=== PATIENT | female | born 1995 | race Caucasian/White ===

== ENCOUNTER 2017-07-11 12:25 | Emergency (ER) | payer OTHER, SELFPAY ==
[2017-07-11 12:31] VITALS: BP 108/71; PULSE 64; RESP 16; TEMP 36.4; O2SAT 99
--- NOTE | 2017-07-11 12:51 | ED.DIZZY ---
HPI - Dizziness <MANSI Dolan - Last Filed: 07/11/17 21:15> General Chief Complaint: Dizziness Stated Complaint: ABDOMINAL PAIN, DIZZY, NAUSEA Time Seen by Provider: 07/11/17 12:40 Source: patient Mode of arrival: ambulatory History of Present Illness HPI Narrative: Patient presents with several weeks of nausea, dizziness, lower abdominal pain. She states that she was seen at the walk-in clinic on the and they tested for urinary tract infection STDs. They gave her prescription for Zofran which helped, but she is out at this time. She still complains of lower belly pain. She states she is nauseous whenever she eats. She is not sure what 1st day of her last period was. Nothing helps other than the Zofran. She declined spinning sensation. She declines chest pain, shortness of breath, fever, diarrhea, constipation. She vomited a few times last time a few days ago. She does complain of decreased oral intake. She describes her lower belly pain as occasional, cramping, like she is about to get her period. She states that the lightheadedness and dizziness gets worse when she is really nauseous. Denies urinary symptoms. Denies flank pain. Denies fever. Denies vaginal symptoms. Related Data Home Medications Medication Instructions Recorded Confirmed fluoxetine 40 mg capsule 40 mg PO QPM 07/02/17 07/11/17 norgestimate 0.18 mg/0.215 mg/0.25 1 tab PO DAILY 07/02/17 07/11/17 mg-ethinyl estradiol 25 mcg tablet Previous Rx's Medication Instructions Recorded ondansetron 4 mg disintegrating 4 mg PO Q6H PRN #14 tab 07/02/17 tablet ondansetron 4 mg PO Q6H PRN #20 tab 07/11/17 Allergies Allergy/AdvReac Type Severity Reaction Status Date / Time No Known Drug Allergies Allergy Verified 07/11/17 12:35 Review of Systems <MANSI Dolan - Last Filed: 07/11/17 21:15> Review of Systems GENERAL: Denies chills, fatigue, malaise, fever, sweats. HEENT: Denies sinus pain, ear pain, sore throat, difficulty swallowing, dizziness. RESPIRATORY: Denies dyspnea, cough, wheezing, hemoptysis, sputum. CARDIOVASCULAR: Denies chest pain, palpitations, orthopnea, edema, GASTROINTESTINAL: See HPI : See HPI MUSCULOSKELETAL: denies weakness, joint pain, or bony pain SKIN: Denies rash, skin lesions, or other NEUROLOGIC: See HPI PSYCHIATRIC: No concerning psychosocial issues. 12 point review of systems is negative except for those stated above Exam <Jessica CarrANY ma-BC - Last Filed: 07/11/17 21:15> Narrative Exam Narrative: GENERAL: This is a well-nourished, well-developed patient, on stretcher with at the bedside HEAD: Atraumatic. Normocephalic. No temporal or scalp tenderness. EYES: Pupils equal round and reactive. Extraocular motions intact. No scleral icterus. No injection or drainage. ENT: Nose without bleeding, purulent drainage or septal hematoma. Throat without erythema, tonsillar hypertrophy or exudate. Uvula midline. Airway patent. Noted dry mucous membranes and tongue. NECK: Trachea midline. No JVD or lymphadenopathy. Supple, nontender, no meningeal signs. CARDIOVASCULAR: Regular rate and rhythm without murmurs, gallops, or rubs. RESPIRATORY: Clear to auscultation. Breath sounds equal bilaterally. No wheezes, rales, or rhonchi. GASTROINTESTINAL: Abdomen soft,, nondistended. No hepato-splenomegaly, or palpable masses. No guarding. Generalized suprapubic pain to palpation. No CVA tenderness bilaterally. EXTREMITIES: No clubbing, cyanosis, or edema. No joint tenderness, effusion, or edema noted. BACK: Nontender without deformity or crepitance. No flank tenderness. NEURO: AOx3. SKIN: No rash or erythema. Initial Vital Signs Initial Vital Signs: Vital Signs Temperature 97.5 F L 07/11/17 12:31 Pulse Rate 64 07/11/17 12:31 Respiratory Rate 16 07/11/17 12:31 Blood Pressure 108/71 07/11/17 12:31 Pulse Oximetry 99 07/11/17 12:31 <Danuta Adams MD - Last Filed: 07/12/17 07:35> Initial Vital Signs Initial Vital Signs: Vital Signs Temperature 97.5 F L 07/11/17 12:31 Pulse Rate 64 07/11/17 12:31 Respiratory Rate 16 07/11/17 12:31 Blood Pressure 108/71 07/11/17 12:31 Pulse Oximetry 99 07/11/17 12:31 Course <Jessica Gu, MMA FIGHTER-BC - Last Filed: 07/11/17 21:15> Hospital Course: 12:50- patient seen. given warm blankets for comfort. orders placed. 13:40- ekg done 13:45- and spoke with patient obtain consent to check urine for gonorrhea and chlamydia. Patient states she does smoke weed 3 times a day or so. Conversation occurred with no boyfriend in the room to protect patient confidentiality. She states that she is not at risk for any sexually transmitted infections at this time but agrees to be tested. Orders Ordered: Discontinued Medications Sodium Chloride (Normal Saline 0.9%) 1,000 mls @ 1,000 mls/hr IV BOLUS ONE Stop: 07/11/17 13:51 Last Infusion: 07/11/17 14:25 Dose: 0 mls/hr Admin: 07/11/17 13:03 Dose: 1,000 mls/hr Ondansetron HCl (Zofran) 4 mg IV NOW ONE Stop: 07/11/17 12:53 Last Admin: 07/11/17 13:03 Dose: 4 mg Reevaluation(s) Reevaluation #1: Patient resting in bed. States nausea is improved after Zofran and fluids. Discussed that lab work is still pending. Time: 14:10 Reevaluation #2: Lab was contacted regarding wait for results. Results will be up in about 25 min. Discussed with patient cause for delay. Discussed with patient that smoking marijuana 3 times a day could be leading to her nausea. Discussed marijuana induced cyclic vomiting syndrome. Patient is resistant to the idea as she uses marijuana to help her nausea. Discussed with patient the cyclic nature of marijuana induced cyclic vomiting or nausea. Time: 13:30 Reevaluation #3: Patient's lab work has been resulted. Discussed results with patient. Gonorrhea and chlamydia have come back negative. Patient has been given a prescription for Zofran. She has no questions or concerns upon discharge and states she is ready to go home. Time: 14:10 Vital Signs - 8 hr 07/11/17 13:52 07/11/17 14:36 07/11/17 15:21 Pulse Rate 68 76 Pulse Rate [Orthostatic Lying] 59 L Pulse Rate [Orthostatic Sitting] 70 Pulse Rate [Orthostatic Standing] 68 Respiratory Rate 17 17 Blood Pressure Blood Pressure [Orthostatic Lying] 117/67 Blood Pressure [Orthostatic Sitting] 112/63 Blood Pressure [Orthostatic Standing] 116/65 Blood Pressure [Right Arm] 119/86 H 110/67 Pulse Oximetry 100 100 07/11/17 15:26 07/11/17 16:10 Pulse Rate 64 67 Pulse Rate [Orthostatic Lying] Pulse Rate [Orthostatic Sitting] Pulse Rate [Orthostatic Standing] Respiratory Rate 23 21 Blood Pressure 107/70 Blood Pressure [Orthostatic Lying] Blood Pressure [Orthostatic Sitting] Blood Pressure [Orthostatic Standing] Blood Pressure [Right Arm] 116/65 Pulse Oximetry 99 100 <Danuta Adams MD - Last Filed: 07/12/17 07:35> Orders Ordered: Discontinued Medications Sodium Chloride (Normal Saline 0.9%) 1,000 mls @ 1,000 mls/hr IV BOLUS ONE Stop: 07/11/17 13:51 Last Infusion: 07/11/17 14:25 Dose: 0 mls/hr Admin: 07/11/17 13:03 Dose: 1,000 mls/hr Ondansetron HCl (Zofran) 4 mg IV NOW ONE Stop: 07/11/17 12:53 Last Admin: 07/11/17 13:03 Dose: 4 mg Vital Signs - 8 hr 07/11/17 13:52 07/11/17 14:36 07/11/17 15:21 Pulse Rate 68 76 Pulse Rate [Orthostatic Lying] 59 L Pulse Rate [Orthostatic Sitting] 70 Pulse Rate [Orthostatic Standing] 68 Respiratory Rate 17 17 Blood Pressure Blood Pressure [Orthostatic Lying] 117/67 Blood Pressure [Orthostatic Sitting] 112/63 Blood Pressure [Orthostatic Standing] 116/65 Blood Pressure [Right Arm] 119/86 H 110/67 Pulse Oximetry 100 100 07/11/17 15:26 07/11/17 16:10 Pulse Rate 64 67 Pulse Rate [Orthostatic Lying] Pulse Rate [Orthostatic Sitting] Pulse Rate [Orthostatic Standing] Respiratory Rate 23 21 Blood Pressure 107/70 Blood Pressure [Orthostatic Lying] Blood Pressure [Orthostatic Sitting] Blood Pressure [Orthostatic Standing] Blood Pressure [Right Arm] 116/65 Pulse Oximetry 99 100 MDM - Dizziness <MANSI Dolan - Last Filed: 07/11/17 21:15> Lab Data Attestation: I reviewed the patient's lab results. Result diagrams: 07/11/17 13:05 07/11/17 13:05 Lab Results 07/11/17 07/11/17 07/11/17 Range/Units 13:05 13:05 13:05 WBC 6.2 (4.5-11.0) X10^3/uL RBC 4.49 (4.0-5.2) X10^6/uL Hgb 13.0 (12.0-16.0) g/dL Hct 38.3 (36-46) % MCV 85.2 (80-100) fL MCH 28.9 (26-34) PG MCHC 33.9 (30-36) % RDW 13.2 (11.6-14.8) % Plt Count 254 (150-400) X10^3/uL Neut % (Auto) 59.6 (50-75) % Lymph % (Auto) 29.5 (25-40) % [place] % (Auto) 8.7 (3-14) % Eos % (Auto) 2.0 (2-4) % Baso % (Auto) 0.2 (0-2) % Neut # (Auto) 3700 (6372-4947) /uL Sodium 142 (137-145) mmol/L Potassium 4.2 (3.4-5.1) mmol/L Chloride 104.0 (98-107) mmol/L Carbon Dioxide 21.0 L (22-32) mmol/L BUN 13.0 (7-17) mg/dL Creatinine 0.70 (0.52-1.04) mg/dL Estimated GFR > 60.0 (>60) mL/min BUN/Creatinine Ratio 18.6 (6-22) Glucose 87 (70-100) mg/dL Calcium 9.5 (8.4-10.2) mg/dL Total Bilirubin 0.6 (0.2-1.3) mg/dL AST 23 (14-36) IU/L ALT 19 (9-52) IU/L Alkaline Phosphatase 51 (38-126) U/L Total Protein 8.4 H (6.3-8.2) g/dL Albumin 4.7 (3.5-5.0) g/dL Globulin 3.7 (1.7-4.1) g/dL Albumin/Globulin Ratio 1.3 (1.0-2.8) Serum , Qual Negative (Negative) Ur Chlamydia DNA (PCR) N gonorrhoeae DNA (PCR) 07/11/17 Range/Units 13:18 WBC (4.5-11.0) X10^3/uL RBC (4.0-5.2) X10^6/uL Hgb (12.0-16.0) g/dL Hct (36-46) % MCV (80-100) fL MCH (26-34) PG MCHC (30-36) % RDW (11.6-14.8) % Plt Count (150-400) X10^3/uL Neut % (Auto) (50-75) % Lymph % (Auto) (25-40) % [place] % (Auto) (3-14) % Eos % (Auto) (2-4) % Baso % (Auto) (0-2) % Neut # (Auto) (8437-7934) /uL Sodium (137-145) mmol/L Potassium (3.4-5.1) mmol/L Chloride (98-107) mmol/L Carbon Dioxide (22-32) mmol/L BUN (7-17) mg/dL Creatinine (0.52-1.04) mg/dL Estimated GFR (>60) mL/min BUN/Creatinine Ratio (6-22) Glucose (70-100) mg/dL Calcium (8.4-10.2) mg/dL Total Bilirubin (0.2-1.3) mg/dL AST (14-36) IU/L ALT (9-52) IU/L Alkaline Phosphatase (38-126) U/L Total Protein (6.3-8.2) g/dL Albumin (3.5-5.0) g/dL Globulin (1.7-4.1) g/dL Albumin/Globulin Ratio (1.0-2.8) Serum , Qual (Negative) Ur Chlamydia DNA (PCR) Not detected N gonorrhoeae DNA (PCR) Not detected MDM Narrative Medical decision making narrative: Patient presented with several weeks of transient nausea and dizziness. She is afebrile and exam does not reveal an acute abdomen. A CBC, CMP, urine labs were ordered and came back within normal limits. Was negative for via urine and serum. She was given a L of fluid as well as Zofran with good relief of nausea. I do highly suspect that smoking marijuana 3 times a day partially contributing, if not the cause of her dizziness and nausea. <Danuta Adams MD - Last Filed: 07/12/17 07:35> Lab Data Lab Results 07/11/17 07/11/17 07/11/17 Range/Units 13:05 13:05 13:05 WBC 6.2 (4.5-11.0) X10^3/uL RBC 4.49 (4.0-5.2) X10^6/uL Hgb 13.0 (12.0-16.0) g/dL Hct 38.3 (36-46) % MCV 85.2 (80-100) fL MCH 28.9 (26-34) PG MCHC 33.9 (30-36) % RDW 13.2 (11.6-14.8) % Plt Count 254 (150-400) X10^3/uL Neut % (Auto) 59.6 (50-75) % Lymph % (Auto) 29.5 (25-40) % [place] % (Auto) 8.7 (3-14) % Eos % (Auto) 2.0 (2-4) % Baso % (Auto) 0.2 (0-2) % Neut # (Auto) 3700 (4179-2502) /uL Sodium 142 (137-145) mmol/L Potassium 4.2 (3.4-5.1) mmol/L Chloride 104.0 (98-107) mmol/L Carbon Dioxide 21.0 L (22-32) mmol/L BUN 13.0 (7-17) mg/dL Creatinine 0.70 (0.52-1.04) mg/dL Estimated GFR > 60.0 (>60) mL/min BUN/Creatinine Ratio 18.6 (6-22) Glucose 87 (70-100) mg/dL Calcium 9.5 (8.4-10.2) mg/dL Total Bilirubin 0.6 (0.2-1.3) mg/dL AST 23 (14-36) IU/L ALT 19 (9-52) IU/L Alkaline Phosphatase 51 (38-126) U/L Total Protein 8.4 H (6.3-8.2) g/dL Albumin 4.7 (3.5-5.0) g/dL Globulin 3.7 (1.7-4.1) g/dL Albumin/Globulin Ratio 1.3 (1.0-2.8) Serum , Qual Negative (Negative) Ur Chlamydia DNA (PCR) N gonorrhoeae DNA (PCR) 07/11/17 Range/Units 13:18 WBC (4.5-11.0) X10^3/uL RBC (4.0-5.2) X10^6/uL Hgb (12.0-16.0) g/dL Hct (36-46) % MCV (80-100) fL MCH (26-34) PG MCHC (30-36) % RDW (11.6-14.8) % Plt Count (150-400) X10^3/uL Neut % (Auto) (50-75) % Lymph % (Auto) (25-40) % [place] % (Auto) (3-14) % Eos % (Auto) (2-4) % Baso % (Auto) (0-2) % Neut # (Auto) (0046-8572) /uL Sodium (137-145) mmol/L Potassium (3.4-5.1) mmol/L Chloride (98-107) mmol/L Carbon Dioxide (22-32) mmol/L BUN (7-17) mg/dL Creatinine (0.52-1.04) mg/dL Estimated GFR (>60) mL/min BUN/Creatinine Ratio (6-22) Glucose (70-100) mg/dL Calcium (8.4-10.2) mg/dL Total Bilirubin (0.2-1.3) mg/dL AST (14-36) IU/L ALT (9-52) IU/L Alkaline Phosphatase (38-126) U/L Total Protein (6.3-8.2) g/dL Albumin (3.5-5.0) g/dL Globulin (1.7-4.1) g/dL Albumin/Globulin Ratio (1.0-2.8) Serum , Qual (Negative) Ur Chlamydia DNA (PCR) Not detected N gonorrhoeae DNA (PCR) Not detected Discharge Plan Departure Patient Disposition: Home, Self-Care Clinical Impression: Nausea Discharge Date/Time: 07/11/17 16:17 Interventions: ED Discharge Assessment Last Done: 07/11/17 16:10 Instructions: DI for Nausea -- Adult, Nausea and Vomiting-Adult Activity Restrictions/Additional Instructions: All of your lab work came back negative. I suggest decreasing you frequency of smoking marijuana to see if that helps. I suggest you cut back as much as you can tolerate. I have given you a prescription for Zofran for nausea. In the meantime, I suggest that you eat simple diet with decreased acidity and decreased spicy foods. Avoid things like citrus, tomatoes, or hot peppers. Definitely follow up with primary care provider come back to the emergency department if he develops fevers, sudden right-sided lower belly pain. Prescriptions: New ondansetron 4 mg tablet,disintegrating 4 mg PO Q6H PRN (Reason: nausea and vomiting) Qty: 20 RF: 0 No Action fluoxetine [Prozac] 40 mg capsule 40 mg PO QPM RF: 0 norgestimate-ethinyl estradiol [Ortho Tri-Cyclen LO (28)] 0.18/0.215/0.25 mg-25 mcg tablet 1 tab PO DAILY RF: 0 ondansetron [Zofran ODT] 4 mg tablet,disintegrating 4 mg PO Q6H PRN (Reason: nausea and vomiting) Qty: 14 RF: 0 <Danuta Adams MD - Last Filed: 07/12/17 07:35> Sign Out Provider Sign Out Attestation: I was the attending of record and available in the ED. I attest to the documentation recorded and agree with assessment and plan.
[2017-07-11] MEDS: SODIUM CHLORIDE 0.9% 1,000 ML 1000 ML IV (13:03)
[2017-07-11] MEDS: ONDANSETRON 4 MG/2 ML INJ IV (13:03)
--- NOTE | 2017-07-11 13:20 | ED_ITS ---
HPI - Dizziness <MANSI Dolan - Last Filed: 07/11/17 21:15> General Chief Complaint: Dizziness Stated Complaint: ABDOMINAL PAIN, DIZZY, NAUSEA Time Seen by Provider: 07/11/17 12:40 Source: patient Mode of arrival: ambulatory History of Present Illness HPI Narrative: Patient presents with several weeks of nausea, dizziness, lower abdominal pain. She states that she was seen at the walk-in clinic on the and they tested for urinary tract infection STDs. They gave her prescription for Zofran which helped, but she is out at this time. She still complains of lower belly pain. She states she is nauseous whenever she eats. She is not sure what 1st day of her last period was. Nothing helps other than the Zofran. She declined spinning sensation. She declines chest pain, shortness of breath , fever, diarrhea, constipation. She vomited a few times last time a few days ago. She does complain of decreased oral intake. She describes her lower belly pain as occasional, cramping, like she is about to get her period. She states that the lightheadedness and dizziness gets worse when she is really nauseous. Denies urinary symptoms. Denies flank pain. Denies fever. Denies vaginal symptoms. Related Data Home Medications Medication Instructions Recorded Confirmed fluoxetine 40 mg capsule 40 mg PO QPM 07/02/17 07/11/17 norgestimate 0.18 mg/0.215 mg/0.25 1 tab PO DAILY 07/02/17 07/11/17 mg-ethinyl estradiol 25 mcg tablet Previous Rx's Medication Instructions Recorded ondansetron 4 mg disintegrating 4 mg PO Q6H PRN #14 tab 07/02/17 tablet ondansetron 4 mg PO Q6H PRN #20 tab 07/11/17 Allergies Allergy/AdvReac Type Severity Reaction Status Date / Time No Known Drug Allergies Allergy Verified 07/11/17 12:35 Review of Systems <MANSI Dolan - Last Filed: 07/11/17 21:15> Review of Systems GENERAL: Denies chills, fatigue, malaise, fever, sweats. HEENT: Denies sinus pain, ear pain, sore throat, difficulty swallowing, dizziness. RESPIRATORY: Denies dyspnea, cough, wheezing, hemoptysis, sputum. CARDIOVASCULAR: Denies chest pain, palpitations, orthopnea, edema, GASTROINTESTINAL: See HPI : See HPI MUSCULOSKELETAL: denies weakness, joint pain, or bony pain SKIN: Denies rash, skin lesions, or other NEUROLOGIC: See HPI PSYCHIATRIC: No concerning psychosocial issues. 12 point review of systems is negative except for those stated above Exam <Jessica CarrANY ma-BC - Last Filed: 07/11/17 21:15> Narrative Exam Narrative: GENERAL: This is a well-nourished, well-developed patient, on stretcher with at the bedside HEAD: Atraumatic. Normocephalic. No temporal or scalp tenderness. EYES: Pupils equal round and reactive. Extraocular motions intact. No scleral icterus. No injection or drainage. ENT: Nose without bleeding, purulent drainage or septal hematoma. Throat without erythema, tonsillar hypertrophy or exudate. Uvula midline. Airway patent. Noted dry mucous membranes and tongue. NECK: Trachea midline. No JVD or lymphadenopathy. Supple, nontender, no meningeal signs. CARDIOVASCULAR: Regular rate and rhythm without murmurs, gallops, or rubs. RESPIRATORY: Clear to auscultation. Breath sounds equal bilaterally. No wheezes , rales, or rhonchi. GASTROINTESTINAL: Abdomen soft,, nondistended. No hepato-splenomegaly, or palpable masses. No guarding. Generalized suprapubic pain to palpation. No CVA tenderness bilaterally. EXTREMITIES: No clubbing, cyanosis, or edema. No joint tenderness, effusion, or edema noted. BACK: Nontender without deformity or crepitance. No flank tenderness. NEURO: AOx3. SKIN: No rash or erythema. Initial Vital Signs Initial Vital Signs: Vital Signs Temperature 97.5 F L 07/11/17 12:31 Pulse Rate 64 07/11/17 12:31 Respiratory Rate 16 07/11/17 12:31 Blood Pressure 108/71 07/11/17 12:31 Pulse Oximetry 99 07/11/17 12:31 <Danuta Adams MD - Last Filed: 07/12/17 07:35> Initial Vital Signs Initial Vital Signs: Vital Signs Temperature 97.5 F L 07/11/17 12:31 Pulse Rate 64 07/11/17 12:31 Respiratory Rate 16 07/11/17 12:31 Blood Pressure 108/71 07/11/17 12:31 Pulse Oximetry 99 07/11/17 12:31 Course <Jessica Gu, STR[employer] FOLDING MACHINE OPERATOR-BC - Last Filed: 07/11/17 21:15> Hospital Course: 12:50- patient seen. given warm blankets for comfort. orders placed. 13:40- ekg done 13:45- and spoke with patient obtain consent to check urine for gonorrhea and chlamydia. Patient states she does smoke weed 3 times a day or so. Conversation occurred with no boyfriend in the room to protect patient confidentiality. She states that she is not at risk for any sexually transmitted infections at this time but agrees to be tested. Orders Ordered: Discontinued Medications Sodium Chloride (Normal Saline 0.9%) 1,000 mls @ 1,000 mls/hr IV BOLUS ONE Stop: 07/11/17 13:51 Last Infusion: 07/11/17 14:25 Dose: 0 mls/hr Admin: 07/11/17 13:03 Dose: 1,000 mls/hr Ondansetron HCl (Zofran) 4 mg IV NOW ONE Stop: 07/11/17 12:53 Last Admin: 07/11/17 13:03 Dose: 4 mg Reevaluation(s) Reevaluation #1: Patient resting in bed. States nausea is improved after Zofran and fluids. Discussed that lab work is still pending. Time: 14:10 Reevaluation #2: Lab was contacted regarding wait for results. Results will be up in about 25 min. Discussed with patient cause for delay. Discussed with patient that smoking marijuana 3 times a day could be leading to her nausea. Discussed marijuana induced cyclic vomiting syndrome. Patient is resistant to the idea as she uses marijuana to help her nausea. Discussed with patient the cyclic nature of marijuana induced cyclic vomiting or nausea. Time: 13:30 Reevaluation #3: Patient's lab work has been resulted. Discussed results with patient. Gonorrhea and chlamydia have come back negative. Patient has been given a prescription for Zofran. She has no questions or concerns upon discharge and states she is ready to go home. Time: 14:10 Vital Signs - 8 hr 07/11/17 13:52 07/11/17 14:36 07/11/17 15:21 Pulse Rate 68 76 Pulse Rate [Orthostatic Lying] 59 L Pulse Rate [Orthostatic Sitting] 70 Pulse Rate [Orthostatic Standing] 68 Respiratory Rate 17 17 Blood Pressure Blood Pressure [Orthostatic Lying] 117/67 Blood Pressure [Orthostatic Sitting] 112/63 Blood Pressure [Orthostatic Standing] 116/65 Blood Pressure [Right Arm] 119/86 H 110/67 Pulse Oximetry 100 100 07/11/17 15:26 07/11/17 16:10 Pulse Rate 64 67 Pulse Rate [Orthostatic Lying] Pulse Rate [Orthostatic Sitting] Pulse Rate [Orthostatic Standing] Respiratory Rate 23 21 Blood Pressure 107/70 Blood Pressure [Orthostatic Lying] Blood Pressure [Orthostatic Sitting] Blood Pressure [Orthostatic Standing] Blood Pressure [Right Arm] 116/65 Pulse Oximetry 99 100 <Danuta Adams MD - Last Filed: 07/12/17 07:35> Orders Ordered: Discontinued Medications Sodium Chloride (Normal Saline 0.9%) 1,000 mls @ 1,000 mls/hr IV BOLUS ONE Stop: 07/11/17 13:51 Last Infusion: 07/11/17 14:25 Dose: 0 mls/hr Admin: 07/11/17 13:03 Dose: 1,000 mls/hr Ondansetron HCl (Zofran) 4 mg IV NOW ONE Stop: 07/11/17 12:53 Last Admin: 07/11/17 13:03 Dose: 4 mg Vital Signs - 8 hr 07/11/17 13:52 07/11/17 14:36 07/11/17 15:21 Pulse Rate 68 76 Pulse Rate [Orthostatic Lying] 59 L Pulse Rate [Orthostatic Sitting] 70 Pulse Rate [Orthostatic Standing] 68 Respiratory Rate 17 17 Blood Pressure Blood Pressure [Orthostatic Lying] 117/67 Blood Pressure [Orthostatic Sitting] 112/63 Blood Pressure [Orthostatic Standing] 116/65 Blood Pressure [Right Arm] 119/86 H 110/67 Pulse Oximetry 100 100 07/11/17 15:26 07/11/17 16:10 Pulse Rate 64 67 Pulse Rate [Orthostatic Lying] Pulse Rate [Orthostatic Sitting] Pulse Rate [Orthostatic Standing] Respiratory Rate 23 21 Blood Pressure 107/70 Blood Pressure [Orthostatic Lying] Blood Pressure [Orthostatic Sitting] Blood Pressure [Orthostatic Standing] Blood Pressure [Right Arm] 116/65 Pulse Oximetry 99 100 MDM - Dizziness <MANSI Dolan - Last Filed: 07/11/17 21:15> Lab Data Attestation: I reviewed the patient's lab results. Result diagrams: 07/11/17 13:05 07/11/17 13:05 Lab Results 07/11/17 07/11/17 07/11/17 Range/Units 13:05 13:05 13:05 WBC 6.2 (4.5-11.0) X10^3/uL RBC 4.49 (4.0-5.2) X10^6/uL Hgb 13.0 (12.0-16.0) g/dL Hct 38.3 (36-46) % MCV 85.2 (80-100) fL MCH 28.9 (26-34) PG MCHC 33.9 (30-36) % RDW 13.2 (11.6-14.8) % Plt Count 254 (150-400) X10^3/uL Neut % (Auto) 59.6 (50-75) % Lymph % (Auto) 29.5 (25-40) % [place] % (Auto) 8.7 (3-14) % Eos % (Auto) 2.0 (2-4) % Baso % (Auto) 0.2 (0-2) % Neut # (Auto) 3700 (1388-8491) /uL Sodium 142 (137-145) mmol/L Potassium 4.2 (3.4-5.1) mmol/L Chloride 104.0 (98-107) mmol/L Carbon Dioxide 21.0 L (22-32) mmol/L BUN 13.0 (7-17) mg/dL Creatinine 0.70 (0.52-1.04) mg/dL Estimated GFR > 60.0 (>60) mL/min BUN/Creatinine Ratio 18.6 (6-22) Glucose 87 (70-100) mg/dL Calcium 9.5 (8.4-10.2) mg/dL Total Bilirubin 0.6 (0.2-1.3) mg/dL AST 23 (14-36) IU/L ALT 19 (9-52) IU/L Alkaline Phosphatase 51 (38-126) U/L Total Protein 8.4 H (6.3-8.2) g/dL Albumin 4.7 (3.5-5.0) g/dL Globulin 3.7 (1.7-4.1) g/dL Albumin/Globulin Ratio 1.3 (1.0-2.8) Serum , Qual Negative (Negative) Ur Chlamydia DNA (PCR) N gonorrhoeae DNA (PCR) 07/11/17 Range/Units 13:18 WBC (4.5-11.0) X10^3/uL RBC (4.0-5.2) X10^6/uL Hgb (12.0-16.0) g/dL Hct (36-46) % MCV (80-100) fL MCH (26-34) PG MCHC (30-36) % RDW (11.6-14.8) % Plt Count (150-400) X10^3/uL Neut % (Auto) (50-75) % Lymph % (Auto) (25-40) % [place] % (Auto) (3-14) % Eos % (Auto) (2-4) % Baso % (Auto) (0-2) % Neut # (Auto) (9755-7127) /uL Sodium (137-145) mmol/L Potassium (3.4-5.1) mmol/L Chloride (98-107) mmol/L Carbon Dioxide (22-32) mmol/L BUN (7-17) mg/dL Creatinine (0.52-1.04) mg/dL Estimated GFR (>60) mL/min BUN/Creatinine Ratio (6-22) Glucose (70-100) mg/dL Calcium (8.4-10.2) mg/dL Total Bilirubin (0.2-1.3) mg/dL AST (14-36) IU/L ALT (9-52) IU/L Alkaline Phosphatase (38-126) U/L Total Protein (6.3-8.2) g/dL Albumin (3.5-5.0) g/dL Globulin (1.7-4.1) g/dL Albumin/Globulin Ratio (1.0-2.8) Serum , Qual (Negative) Ur Chlamydia DNA (PCR) Not detected N gonorrhoeae DNA (PCR) Not detected MDM Narrative Medical decision making narrative: Patient presented with several weeks of transient nausea and dizziness. She is afebrile and exam does not reveal an acute abdomen. A CBC, CMP, urine labs were ordered and came back within normal limits. Was negative for via urine and serum. She was given a L of fluid as well as Zofran with good relief of nausea. I do highly suspect that smoking marijuana 3 times a day partially contributing , if not the cause of her dizziness and nausea. <Danuta Adams MD - Last Filed: 07/12/17 07:35> Lab Data Lab Results 07/11/17 07/11/17 07/11/17 Range/Units 13:05 13:05 13:05 WBC 6.2 (4.5-11.0) X10^3/uL RBC 4.49 (4.0-5.2) X10^6/uL Hgb 13.0 (12.0-16.0) g/dL Hct 38.3 (36-46) % MCV 85.2 (80-100) fL MCH 28.9 (26-34) PG MCHC 33.9 (30-36) % RDW 13.2 (11.6-14.8) % Plt Count 254 (150-400) X10^3/uL Neut % (Auto) 59.6 (50-75) % Lymph % (Auto) 29.5 (25-40) % [place] % (Auto) 8.7 (3-14) % Eos % (Auto) 2.0 (2-4) % Baso % (Auto) 0.2 (0-2) % Neut # (Auto) 3700 (4480-1760) /uL Sodium 142 (137-145) mmol/L Potassium 4.2 (3.4-5.1) mmol/L Chloride 104.0 (98-107) mmol/L Carbon Dioxide 21.0 L (22-32) mmol/L BUN 13.0 (7-17) mg/dL Creatinine 0.70 (0.52-1.04) mg/dL Estimated GFR > 60.0 (>60) mL/min BUN/Creatinine Ratio 18.6 (6-22) Glucose 87 (70-100) mg/dL Calcium 9.5 (8.4-10.2) mg/dL Total Bilirubin 0.6 (0.2-1.3) mg/dL AST 23 (14-36) IU/L ALT 19 (9-52) IU/L Alkaline Phosphatase 51 (38-126) U/L Total Protein 8.4 H (6.3-8.2) g/dL Albumin 4.7 (3.5-5.0) g/dL Globulin 3.7 (1.7-4.1) g/dL Albumin/Globulin Ratio 1.3 (1.0-2.8) Serum , Qual Negative (Negative) Ur Chlamydia DNA (PCR) N gonorrhoeae DNA (PCR) 07/11/17 Range/Units 13:18 WBC (4.5-11.0) X10^3/uL RBC (4.0-5.2) X10^6/uL Hgb (12.0-16.0) g/dL Hct (36-46) % MCV (80-100) fL MCH (26-34) PG MCHC (30-36) % RDW (11.6-14.8) % Plt Count (150-400) X10^3/uL Neut % (Auto) (50-75) % Lymph % (Auto) (25-40) % [place] % (Auto) (3-14) % Eos % (Auto) (2-4) % Baso % (Auto) (0-2) % Neut # (Auto) (7722-0817) /uL Sodium (137-145) mmol/L Potassium (3.4-5.1) mmol/L Chloride (98-107) mmol/L Carbon Dioxide (22-32) mmol/L BUN (7-17) mg/dL Creatinine (0.52-1.04) mg/dL Estimated GFR (>60) mL/min BUN/Creatinine Ratio (6-22) Glucose (70-100) mg/dL Calcium (8.4-10.2) mg/dL Total Bilirubin (0.2-1.3) mg/dL AST (14-36) IU/L ALT (9-52) IU/L Alkaline Phosphatase (38-126) U/L Total Protein (6.3-8.2) g/dL Albumin (3.5-5.0) g/dL Globulin (1.7-4.1) g/dL Albumin/Globulin Ratio (1.0-2.8) Serum , Qual (Negative) Ur Chlamydia DNA (PCR) Not detected N gonorrhoeae DNA (PCR) Not detected Discharge Plan Departure Patient Disposition: Home, Self-Care Clinical Impression: Nausea Discharge Date/Time: 07/11/17 16:17 Interventions: ED Discharge Assessment Last Done: 07/11/17 16:10 Instructions: DI for Nausea -- Adult, Nausea and Vomiting-Adult Activity Restrictions/Additional Instructions: All of your lab work came back negative. I suggest decreasing you frequency of smoking marijuana to see if that helps. I suggest you cut back as much as you can tolerate. I have given you a prescription for Zofran for nausea. In the meantime, I suggest that you eat simple diet with decreased acidity and decreased spicy foods. Avoid things like citrus, tomatoes, or hot peppers. Definitely follow up with primary care provider come back to the emergency department if he develops fevers, sudden right-sided lower belly pain. Prescriptions: New ondansetron 4 mg tablet,disintegrating 4 mg PO Q6H PRN (Reason: nausea and vomiting) Qty: 20 RF: 0 No Action fluoxetine [Prozac] 40 mg capsule 40 mg PO QPM RF: 0 norgestimate-ethinyl estradiol [Ortho Tri-Cyclen LO (28)] 0.18/0.215/0.25 mg- 25 mcg tablet 1 tab PO DAILY RF: 0 ondansetron [Zofran ODT] 4 mg tablet,disintegrating 4 mg PO Q6H PRN (Reason: nausea and vomiting) Qty: 14 RF: 0 <Danuta Adams MD - Last Filed: 07/12/17 07:35> Sign Out Provider Sign Out Attestation: I was the attending of record and available in the ED. I attest to the documentation recorded and agree with assessment and plan.
[2017-07-11 13:34] LABS: Alanine Aminotransferase 19 IU/L (9-52); Albumin 4.7 g/dL (3.5-5.0); Albumin Globulin Ratio 1.3 (1.0-2.8); Alkaline Phosphatase 51 U/L (38-126); Aspartate Aminotransferase 23 IU/L (14-36); BUN Creatinine Ratio 18.6 (6-22); Bilirubin Total 0.6 mg/dL (0.2-1.3); Calcium 9.5 mg/dL (8.4-10.2); Estimated Glomerular Filt Rate > 60.0 mL/min (>60); Globulin 3.7 g/dL (1.7-4.1); Glucose 87 mg/dL (70-100); HEMOLYSIS 36 (0-50); Potassium 4.2 mmol/L (3.4-5.1); Sodium 142 mmol/L (137-145); Total Protein 8.4 g/dL (6.3-8.2)
--- NOTE | 2017-07-11 13:34 | PC.NURSE ---
Ongoing nausea, vomiting, and some diarrhea for the past 2 weeks. Denies fever or chills. Abdominal pain is in the lower abdominal area below the umbilicus. Her dizziness will occur suddenly while she is at work and then subside. She is currently on the pill, but does not know date of last menstrual period.
[2017-07-11 13:37] LABS: Pregnancy Test Serum,Qual Negative (Negative)
[2017-07-11 13:41] LABS: Add Manual Diff / Slide Review NO; Basophils Percent Auto 0.2 % (0-2); Hematocrit 38.3 % (36-46); Lymphocytes Percent Auto 29.5 % (25-40); Mean Corpuscular HGB Conc 33.9 % (30-36); Mean Corpuscular Hemoglobin 28.9 PG (26-34); Mean Corpuscular Volume 85.2 fL (80-100); Monocytes Percent Auto 8.7 % (3-14); Neutrophils Absolute Auto 3700 /uL (3000-5900); Neutrophils Percent Auto 59.6 % (50-75); Platelet Count 254 X10^3/uL (150-400); Red Blood Cell Count 4.49 X10^6/uL (4.0-5.2); Red Cell Distribution Width 13.2 % (11.6-14.8); White Blood Cell Count 6.2 X10^3/uL (4.5-11.0)
[2017-07-11 13:52] VITALS: BP 119/86; PULSE 68; RESP 17; O2SAT 100
[2017-07-11 14:36] VITALS: BP 110/67; PULSE 76; RESP 17; O2SAT 100
[2017-07-11 15:21] VITALS: BP 112/63; BP 116/65; BP 117/67; PULSE 59; PULSE 68; PULSE 70
--- NOTE | 2017-07-11 15:25 | PC.NURSE ---
Pt stated she did not feel dizzy or weak
[2017-07-11 15:26] VITALS: BP 116/65; PULSE 64; RESP 23; O2SAT 99
[2017-07-11 15:55] LABS: Urine Chlamydia NOT DETECTED; Urine N gonorrhoeae NOT DETECTED
[2017-07-11 16:10] VITALS: BP 107/70; PULSE 67; RESP 21; O2SAT 100
== END 2017-07-11 16:17 | disposition home or self-care (01) ==
PROVIDERS: Emergency Provider Nurse Practitioner Family
DX: R11.0 Nausea (principal)
CPT/HCPCS: 36591; 80053; 81003; 81025; 84703; 85025; 87491; 87591; 93005; 93041; 96361; 96374; 99284; 99285; J2405

== ENCOUNTER 2017-07-26 13:54 | Emergency (ER) | payer OTHER, SELFPAY ==
[2017-07-26 13:57] VITALS: BP 107/65; PULSE 74; RESP 18; TEMP 36.4; O2SAT 97; BMI 23.5
--- NOTE | 2017-07-26 13:59 | ED.NAVMDI ---
HPI - Nausea/Vomiting/Diarrhea <Dolores Jamil PA-C - Last Filed: 07/26/17 17:59> General Chief complaint: Nausea/Vomiting/Diarrhea Stated complaint: '[place],dizziness' Time Seen by Provider: 07/26/17 13:55 Source: patient Mode of arrival: ambulatory Limitations: no limitations History of Present Illness HPI Narrative: This 22-year-old returns for 3rd visit to the ED/walking clinic in the last several weeks. She states that about a month ago, she had onset of nausea that just has never really resolved. She states that she has had occasional vomiting, but none at all today. She has been keeping down various fluids and water today, states she had half of a hot dog but has not eaten much else due to the nausea. She states that she was given a prescription which seemed to help the nausea significantly but it seems like that is becoming less effective over time. She describes having some intermittent mild epigastric area pain with this that does not radiate. She denies pain in the lower abdomen. She denies chest pain or heartburn. She thinks that maybe the nausea worsens after she eats, but also states that this is fairly persistent. She denies any urinary symptoms at all. She denies fever. Denies any bowel habit changes such as diarrhea. She had a normal bowel movement today and thinks she might of had a trace of blood on the toilet paper, but not sure. None in the stool. She does not think she is spotting and states she is regular about taking her contraceptive. She has continued to work at her physical job through this, and states that symptoms are not any worse today, just have not gotten better. She is from [place], here for the summer and does not have a local PCP. She smoked marijuana daily for about 2 years, occasionally will skip a day. She states that cutting down some has not seemed to make a difference in her nausea but did not try stopping Related Data Home Medications Medication Instructions Recorded Confirmed fluoxetine 40 mg capsule 40 mg PO QPM 07/02/17 07/11/17 norgestimate 0.18 mg/0.215 mg/0.25 1 tab PO DAILY 07/02/17 07/11/17 mg-ethinyl estradiol 25 mcg tablet Previous Rx's Medication Instructions Recorded ondansetron 4 mg disintegrating 4 mg PO Q6H PRN #14 tab 07/02/17 tablet ondansetron 4 mg PO Q6H PRN #20 tab 07/11/17 ondansetron HCl [Zofran] 4 mg PO Q6H PRN #10 tab 07/26/17 Allergies Allergy/AdvReac Type Severity Reaction Status Date / Time No Known Drug Allergies Allergy Verified 07/11/17 12:35 Review of Systems <CINDY Martinez Last Filed: 07/26/17 17:59> Review of Systems All systems reviewed & are unremarkable except as noted in HPI and below Exam <CINDY Martinez Last Filed: 07/26/17 17:59> Narrative Exam Narrative: GENERAL APPEARANCE: Patient sitting comfortably, appears well, in no distress. HEENT: PERRL, EOMI, no scleral icterus NECK: Supple LUNGS: Clear to auscultation bilaterally. HEART: Rate and rhythm regular, normal S1 and S2, no S3 or S4. ABDOMEN: Soft, nontender, nondistended, bowel sounds present x 4 quadrants, no masses palpable, no hepatosplenomegaly. No CVAT EXTREMITIES: No edema, no cyanosis DERMATOLOGIC: No jaundice or exanthem RECTAL: No palpable masses, normal sphincter tone, guaiac negative x1 NEUROLOGIC: Alert and oriented with normal speech and coordination Initial Vital Signs Initial Vital Signs: Vital Signs Temperature 97.5 F L 07/26/17 13:57 Pulse Rate 74 07/26/17 13:57 Respiratory Rate 18 07/26/17 13:57 Blood Pressure 107/65 07/26/17 13:57 Pulse Oximetry 97 07/26/17 13:57 <Conrado Singer DO - Last Filed: 07/27/17 12:53> Initial Vital Signs Initial Vital Signs: Vital Signs Temperature 97.5 F L 07/26/17 13:57 Pulse Rate 74 07/26/17 13:57 Respiratory Rate 18 07/26/17 13:57 Blood Pressure 107/65 07/26/17 13:57 Pulse Oximetry 97 07/26/17 13:57 Course <CINDY Martinez Last Filed: 07/26/17 17:59> Hospital Course: Patient has not had any acute worsening of her symptoms since last visit. She has not had any vomiting during her stay and appears to be sitting comfortably with her significant other using her cell phone. She does not appear to have any active rectal bleeding. Discussed importance of return if acutely worse, otherwise continue Zofran down also add PPI. Advise trial of discontinuing THC, and needs follow-up with a local PCP to be referred for further workup if not improving. She is agreeable Orders Ordered: Discontinued Medications Al Hydrox/Mg Hydrox/Simethicone 20 ml/ Lidocaine HCl 15 ml 0 ml PO NOW ONE Stop: 07/26/17 14:28 Last Admin: 07/26/17 15:01 Dose: 35 ml Ondansetron HCl (Zofran Odt) 4 mg PO NOW ONE Stop: 07/26/17 14:28 Last Admin: 07/26/17 14:56 Dose: 4 mg Ranitidine HCl (Zantac) 300 mg PO NOW ONE Stop: 07/26/17 14:28 Last Admin: 07/26/17 14:57 Dose: 300 mg Vital Signs - 8 hr 07/26/17 13:57 07/26/17 15:41 Temperature 97.5 F L Pulse Rate 74 77 Respiratory Rate 18 16 Blood Pressure 107/65 111/66 Pulse Oximetry 97 99 <Conrado Singer DO - Last Filed: 07/27/17 12:53> Orders Ordered: Discontinued Medications Al Hydrox/Mg Hydrox/Simethicone 20 ml/ Lidocaine HCl 15 ml 0 ml PO NOW ONE Stop: 07/26/17 14:28 Last Admin: 07/26/17 15:01 Dose: 35 ml Ondansetron HCl (Zofran Odt) 4 mg PO NOW ONE Stop: 07/26/17 14:28 Last Admin: 07/26/17 14:56 Dose: 4 mg Ranitidine HCl (Zantac) 300 mg PO NOW ONE Stop: 07/26/17 14:28 Last Admin: 07/26/17 14:57 Dose: 300 mg Vital Signs - 8 hr 07/26/17 13:57 07/26/17 15:41 Temperature 97.5 F L Pulse Rate 74 77 Respiratory Rate 18 16 Blood Pressure 107/65 111/66 Pulse Oximetry 97 99 MDM - Nausea/Vomiting/Diarrhea <Dolores Jamil PA-C - Last Filed: 07/26/17 17:59> Lab Data Attestation: I reviewed the patient's lab results. Lab Results 07/26/17 07/26/17 07/26/17 Range/Units 14:03 14:03 14:03 Urine Color Yellow Urine Appearance Clear Urine pH 6.5 (4.5-8.0) Ur Specific [place] 1.020 (1.000-1.035) Urine Protein Negative (Negative) Urine Glucose (UA) Negative (Normal) g/dL Urine Ketones Negative (NEGATIVE) Urine Occult Blood 2+ H (Negative) Urine Nitrate Negative (Negative) Urine Bilirubin Negative (NEGATIVE) Urine Urobilinogen 0.2 (0.2) E.U./dL Ur Leukocyte Esterase Negative (NEGATIVE) Urine RBC 5-10/hpf H (0-5/HPF) Urine WBC None seen (0-5/HPF) Ur Squamous Epith Cells 5-10 /hpf H Urine Bacteria None seen (None) Ur Culture Indicated? Cult not indicated Micro UA Comment Not Reportable Urine Test Negative (Negative) <Conrado Singer DO - Last Filed: 07/27/17 12:53> Lab Data Lab Results 07/26/17 07/26/17 07/26/17 Range/Units 14:03 14:03 14:03 Urine Color Yellow Urine Appearance Clear Urine pH 6.5 (4.5-8.0) Ur Specific [place] 1.020 (1.000-1.035) Urine Protein Negative (Negative) Urine Glucose (UA) Negative (Normal) g/dL Urine Ketones Negative (NEGATIVE) Urine Occult Blood 2+ H (Negative) Urine Nitrate Negative (Negative) Urine Bilirubin Negative (NEGATIVE) Urine Urobilinogen 0.2 (0.2) E.U./dL Ur Leukocyte Esterase Negative (NEGATIVE) Urine RBC 5-10/hpf H (0-5/HPF) Urine WBC None seen (0-5/HPF) Ur Squamous Epith Cells 5-10 /hpf H Urine Bacteria None seen (None) Ur Culture Indicated? Cult not indicated Micro UA Comment Not Reportable Urine Test Negative (Negative) Discharge Plan Departure Patient Disposition: Home, Self-Care Clinical Impression: Chronic epigastric pain Discharge Date/Time: 07/26/17 15:43 Interventions: ED Discharge Assessment Last Done: 07/26/17 15:41 Instructions: DI for Abdominal Pain-Adult, DI for Nausea -- Adult Activity Restrictions/Additional Instructions: You should return if you have any acutely worsening symptoms as we talked about. Otherwise, you can continue the antinausea medicine as needed, but also add [id number] omeprazole (Prilosec) 20 mg twice daily about 45 min before meals. You can also try adding a liquid antacid such as Gaviscon as needed. Eat small amounts of food every hour or 2 rather than trying to eat larger meals. Eat a bland diet and avoid caffeine. Try stopping marijuana altogether for several weeks to a month to see if this is helpful. You should call to get established with a primary care clinic in [facility] (try [facility] since you have already been seen at the walk-in clinic) so that you can follow up on this next week to see whether getting better. If not further testing and referral may be needed Prescriptions: New ondansetron HCl [Zofran] 4 mg tablet 4 mg PO Q6H PRN (Reason: nausea) Qty: 10 RF: 0 No Action fluoxetine [Prozac] 40 mg capsule 40 mg PO QPM RF: 0 norgestimate-ethinyl estradiol [Ortho Tri-Cyclen LO (28)] 0.18/0.215/0.25 mg-25 mcg tablet 1 tab PO DAILY RF: 0 ondansetron [Zofran ODT] 4 mg tablet,disintegrating 4 mg PO Q6H PRN (Reason: nausea and vomiting) Qty: 14 RF: 0 ondansetron 4 mg tablet,disintegrating 4 mg PO Q6H PRN (Reason: nausea and vomiting) Qty: 20 RF: 0 Referrals: [facility] [Provider Group] <Conrado Singer, - Last Filed: 07/27/17 12:53> [facility] Attending Gopi Attestation: I was immediately available in the department for consultation. Documentation has been reviewed. I agree with assessment and plan.
[2017-07-26 14:18] LABS: Bacteria Urine None Seen; WBC Urine None Seen (0-5/HPF)
[2017-07-26 14:24] LABS: Appearance Urine UA CLEAR; Bilirubin Urine UA NEGATIVE (NEGATIVE); Color Urine UA YELLOW; Glucose Urine UA NEGATIVE (Normal); Ketones Urine UA NEGATIVE (NEGATIVE); Leukocyte Esterase Urine UA NEGATIVE (NEGATIVE); Nitrite Urine UA Negative (Negative); Occult Blood Urine UA 2+ (Negative); Protein Urine UA NEGATIVE (Negative); Urobilinogen Urine UA 0.2 E.U./dL (0.2); pH Urine UA 6.5 (4.5-8.0)
[2017-07-26 14:25] LABS: Pregnancy Test Urine Negative (Negative)
[2017-07-26 14:31] LABS: RBC Urine 5-10/HPF (0-5/HPF)
[2017-07-26 14:32] LABS: Culture Indicated Urine Cult Not Indicated; Squamous Epithelial Cell Urine 5-10 /HPF
[2017-07-26] MEDS: ONDANSETRON 4 MG ODT PO (14:56)
[2017-07-26] MEDS: MAG HYDROX/ALUMINUM/SIMETH SUS 20 ML, LIDOCAINE VISCOUS 2% 15 ML PO (15:01)
--- NOTE | 2017-07-26 15:40 | PC.NURSE ---
I think I have an ulcer.
[2017-07-26 15:41] VITALS: BP 111/66; PULSE 77; RESP 16; O2SAT 99
== END 2017-07-26 15:43 | disposition home or self-care (01) ==
PROVIDERS: Emergency Provider Internal Medicine
DX: R10.13 Epigastric pain (principal)
CPT/HCPCS: 81003; 81015; 81025; 99283